=== PATIENT | male | born 2000 | race Caucasian/White ===

== ENCOUNTER 2021-05-17 10:40 | Observation (INO) | payer BC ==
[2021-05-17] MEDS ORDERED: ACETAMINOPHEN IV (For NPO) 1,000 MG in EMPTY BAG 1 BAG IVPB STA (10:51)
[2021-05-17] MEDS ORDERED: NALOXONE 0.4 MG/ML 1 ML VIAL IV PRN (10:51)
--- NOTE | 2021-05-17 10:51 | ED ---
Abdominal Pain HPI - General Chief Complaint: Abdominal Pain Stated Complaint: Appendicitis Time Seen by Provider: 05/17/21 10:44 Source: patient, EMS, RN notes reviewed Mode of arrival: EMS Limitations: no limitations - History of Present Illness Initial Comments: This a 21-year-old male presents emergency Department with chief complaint of abdominal pain. Patient is a transfer from [place] for acute appendicitis. Patient states pain started yesterday around 7 PM last night increasing throughout the night did have an episode nausea vomiting patient's found afebrile, leukocytosis with enlarged appendix on CT. Patient has moderate right lower quadrant pain. Patient was given antibiotics by prior hospital. - Related Data Allergies Allergy/AdvReac Type Severity Reaction Status Date / Time cephalexin [From Keflex] Allergy Rash/Hives Verified 05/17/21 10:50 Fish Containing Products Allergy Swelling Verified 05/17/21 10:50 [Fish] Penicillins Allergy Rash/Hives Verified 05/17/21 10:50 Review of Systems ROS Statement: Those systems with pertinent positive or pertinent negative responses have been documented in the HPI. ROS Other: All systems not noted in ROS Statement are negative. Past Medical History Past Medical History: No Reported History History of Any Multi-Drug Resistant Organisms: None Reported Past Surgical History: No Surgical Hx Reported Past Psychological History: No Psychological Hx Reported Smoking Status: Never smoker Past Alcohol Use History: Occasional Past Drug Use History: None Reported General Exam Limitations: no limitations General appearance: alert, in no apparent distress Respiratory exam: Present: normal lung sounds bilaterally. Absent: respiratory distress, wheezes, rales, rhonchi, stridor Cardiovascular Exam: Present: normal rhythm, tachycardia, normal heart sounds. Absent: systolic murmur, diastolic murmur, rubs, gallop, clicks GI/Abdominal exam: Present: soft, tenderness (Moderate right lower quadrant tenderness), normal bowel sounds. Absent: distended, guarding, rebound, rigid Neurological exam: Present: alert, oriented X3 Course Vital Signs 05/17/21 10:42 Temperature 101.5 F H Pulse Rate 105 H Respiratory 19 Rate Blood Pressure 134/96 O2 Sat by Pulse 98 Oximetry Medical Decision Making - Medical Decision Making Patient will be admitted to Dr. Marquez applications specialist for surgery. Patient did receive antibiotics prior arrival. Disposition Clinical Impression: Acute appendicitis Disposition: ADMITTED IP TO THIS HOSP Condition: Fair Referrals: Calin Rivers MD [Primary Care Provider] - 1-2 days
[2021-05-17] MEDS ORDERED: SODIUM CHLORIDE 0.9% 1,000 ML IV SCH (11:00)
[2021-05-17] MEDS ORDERED: HEPARIN SODIUM,PORCINE/PF 5,000 UNIT/0.5 ML SYRINGE SQ ONE (11:50)
[2021-05-17] MEDS ORDERED: HEPARIN SODIUM,PORCINE/PF 5,000 UNIT/0.5 ML SYRINGE SQ STA (11:53)
[2021-05-17] MEDS ORDERED: PROPOFOL 10 MG/ML 20 ML VIAL IV ONE (12:04)
[2021-05-17] MEDS ORDERED: MIDAZOLAM 2 MG/2 ML VIAL ONE (12:04)
[2021-05-17] MEDS ORDERED: ONDANSETRON 4 MG/2 ML VIAL ONE (12:04)
[2021-05-17] MEDS ORDERED: fentaNYL (PF) 50 MCG/ML 2 ML AMP ONE (12:04)
[2021-05-17] MEDS ORDERED: SUCCINYLCHOLINE CHLORIDE 100 MG/5 ML SYR IV ONE (12:04)
[2021-05-17] MEDS ORDERED: DEXAMETHASONE SOD PHOSPHATE 10 MG/ML 1 ML VIAL ONE (12:04)
[2021-05-17] MEDS ORDERED: NEOSTIGMINE 1 MG/ML 10 ML VIAL ONE (12:04)
[2021-05-17] MEDS ORDERED: ROCURONIUM 10 MG/ML (5 ML VIAL) IV ONE (12:04)
[2021-05-17] MEDS ORDERED: HYDROmorphone (PF) 1 MG/ML ONE (12:04)
[2021-05-17] MEDS ORDERED: LIDOCAINE 1% INJ 10MG/ML (20 ML MDV) ONE (12:04)
[2021-05-17] MEDS ORDERED: HEPARIN SODIUM,PORCINE 5,000 UNIT/ML 1 ML VIAL ONE (12:04)
[2021-05-17] MEDS ORDERED: GLYCOPYRROLATE 0.2 MG/ML 2 ML VIAL ONE (12:04)
--- NOTE | 2021-05-17 12:04 | P.GSHP ---
History of Present Illness H&P Date: 05/17/21 21-year-old male presented to [facility] after complaints of abdominal pain. He states that he is been feeling 'off' for a few days and has had symptoms of stomach upset. He initially associated this with diet. He states that the pain then began to centralizer on the periumbilical area and then isolated to the right lower quadrant. He complains of nausea and dry heaving. He admits to a decreased appetite. At [facility], workup was performed and finding of leukocytosis of approximately [address] of the abdomen and pelvis was performed with resulting 1.1 cm dilated appendix with no significant inflammatory changes. He was transferred to this facility secondary to acute appendicitis. - Review of Systems All systems: negative Past Medical History Past Medical History: No Reported History History of Any Multi-Drug Resistant Organisms: None Reported Past Surgical History: No Surgical Hx Reported Past Psychological History: No Psychological Hx Reported Smoking Status: Never smoker Past Alcohol Use History: Occasional Past Drug Use History: None Reported Medications and Allergies Home Medications Medication Instructions Recorded Confirmed Type Calcium Carbonate [Tums] 500 mg PO TID PRN 05/17/21 05/17/21 History Omeprazole 20 mg PO HS 05/17/21 05/17/21 History Allergies Allergy/AdvReac Type Severity Reaction Status Date / Time cephalexin [From Keflex] Allergy Rash/Hives Verified 05/17/21 11:16 Fish Containing Products Allergy Swelling Verified 05/17/21 11:16 [Fish] Penicillins Allergy Rash/Hives Verified 05/17/21 11:16 Surgical - Exam Osteopathic Statement: *. No significant issues noted on an osteopathic structural exam other than those noted in the History and Physical/Consult. Vital Signs Temp Pulse Resp BP Pulse Ox 101.5 F H 105 H 19 134/96 98 05/17/21 10:42 05/17/21 10:42 05/17/21 10:42 05/17/21 10:42 05/17/21 10:42 - General well nourished, no distress - Eyes normal ocular movement - ENT no hearing loss - Neck trachea midline - Respiratory normal respiratory effort - Abdomen Soft, tender to palpation in right lower quadrant, tender to percussion in right lower quadrant, nondistended, no rebound, no guarding - Psychiatric oriented to time, oriented to person, oriented to place Assessment and Plan Plan: Based on clinical exam and finding of dilated appendix along with leukocytosis, there is concern for acute appendicitis. This was discussed with the patient in depth. Patient was started on clindamycin at [facility] and did receive this antibiotic. We will plan for laparoscopic appendectomy, possible open. This was discussed in depth with the patient. Risks, benefits and alternatives were provided to the patient. Further recommendations to be made after procedure.
[2021-05-17] MEDS ORDERED: SODIUM CHLORIDE 0.9% 1,000 ML IV ONE (12:09)
[2021-05-17] MEDS ORDERED: LIDOCAINE 1%-EPI 1:100,000 20 ML VIAL SQ ONE ×2 (12:38→12:53)
[2021-05-17] MEDS ORDERED: LACTATED RINGERS 1,000 ML IV ONE (13:00)
[2021-05-17] MEDS ORDERED: ONDANSETRON 4 MG/2 ML VIAL IVP PRN (13:02)
--- NOTE | 2021-05-17 13:09 | P.OP ---
Date of Procedure: 05/17/21 Preoperative Diagnosis: Acute appendicitis Postoperative Diagnosis: Acute appendicitis Procedure(s) Performed: Laparoscopic appendectomy Anesthesia: DEB Surgeon: Los Marquez Pathology: other (Appendix) Condition: stable Disposition: floor Indications for Procedure: 21-year-old male was a transfer from an outside facility secondary to finding of acute appendicitis. On workup, he is noted to have right lower quadrant pain over the past day with CT findings of dilated appendix and leukocytosis. Plan is for left scopic appendectomy, possible open. Risks, benefits and alternatives were provided to the patient. He did provide consent prior to attending the operating suite. Operative Findings: Erythematous, dilated and inflamed appendix Description of Procedure: The patient was brought to the operating suite and placed in supine position on the operating table. Sedation was provided by anesthesia and the patient underwent endotracheal intubation. The patient was then prepped and draped in regular sterile fashion. A supra umbilical incision was made and dissection was carried to the fascia. The fascia was incised and a 12 mm trocar was placed. Pneumoperitoneum was achieved. The patient was then placed in appropriate position. 25 mm ports were then placed. One was placed in the left lower quadrant and one was placed in the suprapubic region. The appendix was immediately visualized and grasped and elevated. It was noted to be distended and edematous. There was also notable inflammation and erythema. A window was created between the mesoappendix and the appendix using a [place] dissector. LigaSure device was used to dissect the mesoappendix from the appendix. The base of the appendix was then clearly visualized. A stapler device was fired across the base of the appendix. Hemostasis was noted to be maintained. The appendix was then placed in an Endo Catch bag and removed from the abdomen. Irrigation was then placed in the area and suctioned. Hemostasis was noted to continue to be maintained. The supra umbilical incision fascial site was closed with 0 Vicryl under direct visualization using a Evan-Mario device. Pneumoperitoneum was then released. All ports removed from the abdomen. 4-0 Vicryl subcuticular sutures were placed over the incisions. Surgical dressing was applied. The patient was awakened in the operating suite and taken to postanesthesia care unit in stable condition.
[2021-05-17] MEDS: HYDROcodone/APAP 5-325MG 1 EACH TAB PO PRN ×2 (14:54→22:00)
[2021-05-17] MEDS: LEVOFLOXACIN 500MG-D5W PMX 500 MG in DEXTROSE/WATER 1 100ML.BAG IVPB SCH (14:54)
[2021-05-17] MEDS: LACTATED RINGERS 1,000 ML IV SCH ×2 (14:55→20:35)
[2021-05-17] MEDS: metroNIDAZOLE-NS PMX 500 MG in SALINE 1 100ML.BAG IVPB SCH ×2 (16:20→23:35)
[2021-05-17] MEDS: HEPARIN SODIUM,PORCINE/PF 5,000 UNIT/0.5 ML SYRINGE SQ SCH ×2 (16:20→23:35)
[2021-05-17] MEDS: KETOROLAC 15 MG/ML 1 ML VIAL IVP SCH ×2 (16:21→23:36)
[2021-05-18] MEDS: LACTATED RINGERS 1,000 ML IV SCH ×2 (05:40→11:30)
[2021-05-18] MEDS: KETOROLAC 15 MG/ML 1 ML VIAL IVP SCH ×2 (05:41→11:27)
[2021-05-18 07:46] VITALS: BP 106/63; PULSE 80; RESP 14; TEMP 97.7
[2021-05-18] MEDS: HEPARIN SODIUM,PORCINE/PF 5,000 UNIT/0.5 ML SYRINGE SQ SCH (07:46)
[2021-05-18] MEDS: HYDROcodone/APAP 5-325MG 1 EACH TAB PO PRN (07:47)
[2021-05-18] MEDS: metroNIDAZOLE-NS PMX 500 MG in SALINE 1 100ML.BAG IVPB SCH (07:47)
[2021-05-18] MEDS ORDERED: PANTOPRAZOLE 40 MG/10 ML VIAL IV SCH (09:00)
[2021-05-18 09:51] LABS: Basophils # (A) 0.02 X 10*3/uL (0.00-0.10); Basophils % (A) 0.2 %; Eosinophils # (A) 0 X 10*3/uL (0.04-0.35); Eosinophils % (A) 0 %; HCT 40.5 % (39.6-50.0); HGB 13.8 g/dL (13.0-17.0); Lymphocytes # (A) 2.14 X 10*3/uL (0.90-5.00); Lymphocytes % (A) 16.2 %; MCH 29.1 pg (27.0-32.0); MCHC 34.1 g/dL (32.0-37.0); MCV 85.4 fL (80.0-97.0); Mean Platelet Volume 11.2 fL (9.5-12.2); Monocytes # (A) 1.17 X 10*3/uL (0.20-1.00); Monocytes % (A) 8.8 %; Neutrophils # (A) 9.86 X 10*3/uL (1.80-7.70); Neutrophils % (A) 74.3 %; Platelet Count 228 X 10*3/uL (140-440); RBC 4.74 X 10*6/uL (4.40-5.60); RDW 12.2 % (11.5-14.5); WBC 13.25 X 10*3/uL (4.50-10.00)
--- NOTE | 2021-05-18 10:10 | P.DS ---
Providers Date of admission: 05/17/21 10:55 Attending physician: Los Marquez DO Primary care physician: Calin Rivers MD Hospital Course: 21-year-old male was transferred from an outside facility secondary to finding concerning for acute appendicitis. He did complain of right lower quadrant pain and CT at the outside facility was concerning for a dilated appendix. He did undergo a laparoscopic appendectomy and was found to have an inflamed and dilat ed appendix. Postoperatively, he was sent to the medical surgical floor and did improve. Tachycardia improved. Leukocytosis improved. Patient stated that he was no longer having the right lower quadrant pain. Diet was advanced. He is surgically stable for discharge. Procedures: Laparoscopic appendectomy Patient Condition at Discharge: Good Plan - Discharge Summary New Discharge Prescriptions: New HYDROcodone/APAP 5-325MG [[place] 5-325] 1 each PO Q6HR PRN #12 tab PRN Reason: Moderate To Severe Pain metroNIDAZOLE [Flagyl] 500 mg PO TID #9 tab Levofloxacin [Levaquin] 500 mg PO DAILY 1 Days #3 tab Continue Omeprazole 20 mg PO HS Calcium Carbonate [Tums] 500 mg PO TID PRN PRN Reason: Heartburn Discharge Medication List Calcium Carbonate [Tums] 500 mg PO TID PRN 05/17/21 [History] Omeprazole 20 mg PO HS 05/17/21 [History] HYDROcodone/APAP 5-325MG [[place] 5-325] 1 each PO Q6HR PRN #12 tab 05/18/21 [Rx] Levofloxacin [Levaquin] 500 mg PO DAILY 1 Days #3 tab 05/18/21 [Rx] metroNIDAZOLE [Flagyl] 500 mg PO TID #9 tab 05/18/21 [Rx] Follow up Appointment(s)/Referral(s): Calin Rivers MD [Primary Care Provider] - 1-2 days Los Marquez DO [Doctor of Osteopathic Medicine] - 2 Weeks Activity/Diet/Wound Care/Special Instructions: No lifting greater than 5 pounds until cleared by surgeon Take pain medication as necessary. If taking narcotic pain medication, take stool softener. Okay to shower, do not scrub on incisions Discharge Disposition: HOME SELF-CARE
[2021-05-18 10:54] LABS: African American GFR (CKD) 145.9 (60.0-200.0); Albumin 3.8 g/dL (3.80-4.90); Albumin/Globulin Ratio 1.81 (1.60-3.17); Anion Gap 7.2 mmol/L (4.00-12.00); BUN/Creat Ratio 13.75 Ratio (12.00-20.00); Calcium 8.8 mg/dL (8.7-10.3); Carbon Dioxide 26.8 mmol/L (21.6-31.8); Globulin 2.1 g/dL (1.6-3.3); Non-African American GFR(CKD) 125.9 (60.0-200.0); Potassium 4.1 mmol/L (3.5-5.5); Total Bilirubin 0.8 mg/dL (0.2-1.2); Total Protein 5.9 g/dL (6.2-8.2)
[2021-05-18] MEDS: LEVOFLOXACIN 500MG-D5W PMX 500 MG in DEXTROSE/WATER 1 100ML.BAG IVPB SCH (11:27)
== END 2021-05-18 14:15 | disposition home or self-care (01) ==
LOC: EC 10:40 → 6NMEDSUR 10:55
PROVIDERS: ADMIT Surgery; ATTEND Surgery
DX: K35.80 Unspecified acute appendicitis (principal); K21.9 Gastro-esophageal reflux disease without esophagitis; Z79.899 Other long term (current) drug therapy; Z88.0 Allergy status to penicillin; Z88.1 Allergy status to other antibiotic agents; Z91.018 Allergy to other foods
CPT/HCPCS: 96365; 99285; 88304; 80053; 85025; 44970; G0378 ×2; J2250; J1644 ×3; J1100; J2710; J2405; J1956 ×2; J2001; J3010; J1170; J0131; J1885 ×2; J0330; J2704; C9113